=== PATIENT | male | born 1990 | race Caucasian/White ===

== ENCOUNTER 2018-06-08 00:01 | Emergency (ER) | payer MEDICAID, SELFPAY ==
[2018-06-08 00:09] VITALS: BP 124/77; PULSE 67; RESP 16; TEMP 36.6; O2SAT 97
--- NOTE | 2018-06-08 00:25 | ED.GENADUL ---
Disposition Clinical Impression: Sensation of lump in throat Disposition: HOME Condition: Stable Additional Instructions: you likely passed the pepperoni and just have small abrasion where it was. We offered to obtain Cat scan to determine if something was stuck but you declined at this time if you still have symptoms tomorrow or worsening symptoms, you have difficulty breathing, fevers or can't swallow liquids return to the emergency department Medical Decision Making - Medical Decision Making Pt here with symptoms that seem consistent with likely globus sensation or likely small esophageal abrasion. Do not feel given it was a small piece of pepperoni he states it was size of about a dime or smaller, that emergent endoscopy required at this time. I did offer to perform CT to determine now if something is stuck in his stated area, and he decided that he did not want a ct at this time. He was told to return if symptoms persistt tomorrow or if he has any respiratory symptoms - Differential Diagnosis throat abrasion, food impaction, globus sensation History of Present Illness - General Chief complaint: ThroatFB Stated complaint: FOOD STUCK IN THROAT Time Seen by Provider: 06/08/18 00:05 Source: patient Mode of arrival: ambulatory Limitations: no limitations - History of Present Illness Initial comments: 28 yo male who denies chronic medical problems comes in with cc of feeling as though there is food stuck in his throat. He states he was eating pepperoni earlier about 4 hours ago and felt it get stuck in the right lower throat inferior to his raphael apple. He denies dyspnea or cough. HE has been drinking fluids and eating since but still feels discomfort in this area so came here. HE is drinking water without issues in front of me on exam without stridor or drooling. Normal oropharynx and lung sounds. Complaint: feeling as though something is stuck in throat Onset/Timin -: hour(s) Improves with: none Worsens with: none - Related Data Unknown [No Known Home Meds] 08/05/17 Allergies Allergy/AdvReac Type Severity Reaction Status Date / Time No Known Allergies Allergy Unverified 08/05/17 18:04 Review of Systems Constitutional: denies: fever Respiratory: denies: shortness of breath Cardiovascular: denies: chest pain Gastrointestinal: denies: vomiting Skin: denies: rash Neurological: denies: headache Comment: All other systems reviewed and negative Past Medical History - Past Medical History History of multiple concussions and postconcussive syndrome Surgical history: no surgical history - Social History Alcohol use: none Drug use: none General Exam - General Limitations: no limitations General appearance: alert, in no apparent distress - Head Head exam: Present: atraumatic - Eye Eye exam: Present: normal apperance - ENT ENT exam: Present: normal orophraynx, mucous membranes moist - Neck Neck exam: Present: normal inspection, full ROM. Absent: tenderness, meningismus - Respiratory Respiratory exam: Present: normal lung sounds bilaterally. Absent: respiratory distress - Cardiovascular Cardiovascular Exam: Present: regular rate, normal rhythm, normal heart sounds - Extremities Exam Extremities exam: Present: normal inspection - Neurological Exam Neurological exam: Present: alert, oriented X3 - Psychiatric Psychiatric exam: Present: normal affect - Skin Skin exam: Present: warm Course Vital Signs - 24 hr 08/28/18 00:09 Temperature 97.9 F Pulse 67 Respiratory 16 Rate Blood Pressure 124/77 Pulse Oximetry 97
== END 2018-06-08 00:38 | disposition home or self-care (01) ==
PROVIDERS: Emergency Provider Emergency Medicine
DX: R09.89 Other specified symptoms and signs involving the circulatory and respiratory systems (principal)
CPT/HCPCS: 99281

== ENCOUNTER 2018-08-22 12:17 | Emergency (ER) | payer MEDICAID, SELFPAY ==
[2018-08-22 12:25] VITALS: BP 115/65; PULSE 78; RESP 18; TEMP 36.5; O2SAT 97
--- NOTE | 2018-08-22 12:28 | ED.GENADUL_ITS ---
Discharge Plan Disposition Patient Disposition: HOME Condition: Good Discharge Details Chief Complaint: Nk/Back Pain Clinical Impression: Throat pain Primary Care Provider: NONE,NONE ED Provider: Bob Landers Home Meds and New Rx's Prescriptions: No Action No Known Home Meds RF: 0 Discharge Instructions Additional Instructions: Based on your exam the likelihood of you having a serious injury to the trachea or esophagus is low You likely have mild bruising of the trachea if you have difficulty breathing, loud breathing or difficulty swallowing liquids return to the emergency department Medical Decision Making 28 yo male who denies chronic medical problems comes in with cc of anterior lower neck pain after he was laying in bed and his dog pawed his anterior neck. He denies other injuries but has discomfort in the area so came here. Is speaking in full sentences, no stridor or dyspnea, and no difficulty swallowing liquids on my exam. Has pain over lower anterior neck. Given his well appearance and mechanism doubt serious trachea or esophageal injury or carotid injury. Will observe here for an hour to see if he has any changes Pt remains stable, no respiratory distres, stridor, or difficulty swallowing and speaking in full sentences. Do not feel imaging indicated. Return precautions given. Differential Diagnosis contusion, laryngospsam HPI General Mode of arrival: ambulatory . Date/Time Provider Initiated Documentation: 08/22/18 12:19 . Limitations to Documentation: no limitations . Information obtained by: patient . History of Present Illness 28 year old M presents to the emergency department with the chief complaint of neck pain, described as mild, with intensity rated at 2. Quality is described as aching, and is localized to the neck. No relieving factors improve symptom(s), No exacerbating factors reported . Patient did receive the following treatments prior to arrival, none Related Data Home Medications Medication Instructions Recorded Confirmed Unknown [No Known Home Meds] 08/05/17 08/22/18 Allergies Allergy/AdvReac Type Severity Reaction Status Date / Time No Known Allergies Allergy Unverified 08/22/18 12:28 General Stated Complaint: Nk/Back Pain JOHNNIE: 3 Review of Systems Review of Systems All systems reviewed & are unremarkable except as noted in HPI and below Constitutional Denies chills, Denies fever(s) and Denies weakness Eyes Denies loss of vision ENT Denies change in voice Cardiovascular Denies chest pain and Denies dyspnea Respiratory Denies dyspnea Gastrointestinal Denies abdominal pain, Denies nausea and Denies vomiting Genitourinary Denies dysuria Musculoskeletal Denies joint swelling Integumentary/Breasts Denies rash Neurologic Denies loss of vision and Denies weakness Psychiatric Denies depression Endocrine Denies cold intolerance and Denies heat intolerance Allergic/Immunologic Denies urticaria PFSH Social History Smoking/Tobacco Use Status: Current-Occasional Exam Const General: no acute distress Orientation: alert HENMT Head: normal to inspection Ears: external ears normal General nose exam: external nose normal Mouth: moist mucous membranes Eyes General: appearance normal, both eyes and all related structures Neck Neck: normal visual inspection Resp Effort & Inspection: normal respiratory effort and able to speak in complete sentences Cardio Rate: regular rate Skin General skin exam: no rashes or lesions noted Neuro General: alert and oriented x3 Extrem General: normal to inspection Psych Mental Status: mental status grossly normal Course Vital Signs Temperature 36.5 C 08/22/18 12:25 Pulse 78 08/22/18 12:25 Respiratory Rate 18 08/22/18 12:25 Blood Pressure 115/65 08/22/18 12:25 Pulse Oximetry 97 08/22/18 12:25 Temperature 36.5 C 08/22/18 12:25 Temperature Source Skin 08/22/18 12:25 Pulse 78 08/22/18 12:25 Respiratory Rate 18 08/22/18 12:25 Blood Pressure 115/65 08/22/18 12:25 Blood Pressure Position Sitting 08/22/18 12:25 Pulse Oximetry 97 08/22/18 12:25 Oxygen Delivery Method Room Air 08/22/18 12:25 Oxygen Flow Rate 0 08/22/18 12:25
[2018-08-22 13:30] VITALS: BP 106/58; PULSE 62; RESP 14; O2SAT 99
== END 2018-08-22 13:32 | disposition home or self-care (01) ==
LOC: ER 13:37
PROVIDERS: Emergency Provider Emergency Medicine
DX: R07.0 Pain in throat (principal); W54.1XXA Struck by dog, initial encounter
CPT/HCPCS: 99281

== ENCOUNTER 2019-03-30 13:56 | Emergency (ER) | payer MEDICAID, SELFPAY ==
[2019-03-30 14:02] VITALS: BP 124/62; PULSE 92; RESP 20; TEMP 36.8; O2SAT 96
--- NOTE | 2019-03-30 14:40 | ED.GENADUL_ITS ---
Discharge Plan Disposition Patient Disposition: HOME Condition: Stable Discharge Details Chief Complaint: RashLesion Clinical Impression: Tick bite of groin Primary Care Provider: None,None ED Provider: Titi Olson Home Meds and New Rx's Prescriptions: No Action No Known Home Meds RF: 0 Discharge Instructions Instructions: Lyme Disease (ED), Tick Bite (ED) Additional Instructions: Feel free to return to the emergency department for any new or significant worsening of symptoms such as fever chills, diffuse arthralgias, or worsening rash. Otherwise continue to do nightly tick checks and if you establish a primary care provider follow-up with them for reassessment as needed Referrals: Primary Care Provider [Outside] Discharge Data Discharge Date/Time-TO BE ENTERED AT DEPARTURE: 03/30/19 14:43 Medical Decision Making Patient presenting to the emergency department chief complaint of tick bite. Patient states that here attempted to remove the tick approximately 1 hours ago. He reports leaving the head in place and unable to remove this. Patient denies any other symptoms, arthralgias, fever chills. Physical exam is unremarkable except for erythema consistent with insect bite and more than likely tick. tick had is present at this time and removed with tweezers. Toy tient on sure exactly amount of time that tick was attached but does state that it was a deer tick. Due to this patient given single dose of doxycycline and discussed tickborne illness symptoms and to return or see primary care if these occur otherwise instructed on daily tick checks along with tick prevention. After discussion of diagnosis and plan of care patient has no further needs, questions, or concerns and states clear understanding to return to the emergency department for any worsening symptoms. HPI General Mode of arrival: ambulatory . Date/Time Provider Initiated Documentation: 03/30/19 14:37 . Limitations to Documentation: no limitations . Information obtained by: patient and RN notes reviewed . History of Present Illness 28 year old M presents to the emergency department with the chief complaint of Tick bite, Quality is described as other (denies pain), Patient started experiencing this hour(s) (1) and it has been constant. Patient notes no other symptoms.. Patient did receive the following treatments prior to arrival, none Related Data Home Medications Medication Instructions Recorded Confirmed Unknown [No Known Home Meds] 08/05/17 03/30/19 Allergies Allergy/AdvReac Type Severity Reaction Status Date / Time No Known Allergies Allergy Unverified 03/30/19 14:05 General Stated Complaint: RashLesion JOHNNIE: 4 Review of Systems Constitutional Denies body ache(s), Denies fever(s) and Denies headache(s) ENT Denies headache(s) Musculoskeletal Denies myalgias, Denies arthralgias and Denies joint swelling Integumentary/Breasts Reports as per HPI, Denies erythema and Denies rash Neurologic Denies headache(s) and Denies paresthesias PFSH Social History Smoking/Tobacco Use Status: Current-Occasional Drug use: Never Do you feel safe at home: Yes Do you feel safe in your relationship?: Yes Exam Const General: cooperative, comfortable and no acute distress Orientation: alert, awake and oriented x3 Resp Effort & Inspection: normal respiratory effort and able to speak in complete sentences Skin General skin exam: erythema (left groin circular area with central bite jules consistent with tick bite), no fluctuance and no induration Rashes: no rashes Neuro General: alert, awake and oriented x3 Course Vital Signs Temperature 36.8 C 03/30/19 14:02 Pulse 92 H 03/30/19 14:02 Respiratory Rate 20 03/30/19 14:02 Blood Pressure 124/62 03/30/19 14:02 Pulse Oximetry 96 03/30/19 14:02 Temperature 36.8 C 03/30/19 14:02 Temperature Source Temporal Artery Scan 03/30/19 14:02 Pulse 92 H 03/30/19 14:02 Respiratory Rate 20 03/30/19 14:02 Respiratory Effort Non-Labored 03/30/19 14:02 Blood Pressure 124/62 03/30/19 14:02 Blood Pressure Position Sitting 03/30/19 14:02 Pulse Oximetry 96 03/30/19 14:02 Oxygen Delivery Method Room Air 03/30/19 14:02 Oxygen Flow Rate 0 03/30/19 14:02 Pain Level 0 03/30/19 14:02
[2019-03-30] MEDS: Doxycycline Hyclate 100 MG CAP 200 MG PO (14:44)
[2019-03-30 14:45] VITALS: BP 124/62; PULSE 92; RESP 20; TEMP 36.8; O2SAT 96
== END 2019-03-30 14:43 | disposition home or self-care (01) ==
PROVIDERS: Emergency Provider Nurse Practitioner Family
DX: S30.861A Insect bite (nonvenomous) of abdominal wall, initial encounter (principal); W57.XXXA Bitten or stung by nonvenomous insect and other nonvenomous arthropods, initial encounter
CPT/HCPCS: 99283

== ENCOUNTER 2019-10-06 17:23 | Emergency (ER) | payer MEDICAID, SELFPAY ==
[2019-10-06 17:27] VITALS: BP 127/77; PULSE 92; RESP 16; TEMP 37.1; O2SAT 98
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
[2019-10-06] MEDS: Acetaminophen 500 MG TAB 1000 MG PO (17:49)
[2019-10-06 18:02] VITALS: BP 115/65; PULSE 83; RESP 15; TEMP 36.8; O2SAT 96
== END 2019-10-06 18:05 | disposition home or self-care (01) ==
LOC: ER 18:06
PROVIDERS: Emergency Provider Emergency Medicine
DX: S09.90XA Unspecified injury of head, initial encounter (principal); R51 Headache; W20.8XXA Other cause of strike by thrown, projected or falling object, initial encounter
CPT/HCPCS: 99282; 99283

== ENCOUNTER 2020-04-16 01:02 | Emergency (ER) | payer MEDICAID, SELFPAY ==
[2020-04-16 01:06] VITALS: BP 134/75; PULSE 75; RESP 16; TEMP 37; O2SAT 97
--- NOTE | 2020-04-16 01:15 | DI.RAD_ITS ---
EXAM: XR FINGER LT RING CLINICAL HISTORY: pain. TECHNIQUE: 2D digital imaging was performed. COMPARISON: None. FINDINGS: BONES: No acute fracture is present. No bony destructive lesion is seen. JOINTS: No dislocation present. SOFT TISSUE: Normal. IMPRESSION: No evidence of acute fracture, dislocation, or subluxation. DATA REPOSITORY: RADIATION DOSE DELIVERED:
--- NOTE | 2020-04-16 01:35 | W.ED.GENAD ---
Discharge Plan Disposition Patient Disposition: HOME Condition: Stable Discharge Details Chief Complaint: Orthopedic Clinical Impression: Sprain of left ring finger Primary Care Provider: None,None ED Provider: Bob Landers Home Meds and New Rx's Prescriptions: No Action No Known Home Meds RF: 0 Discharge Instructions Instructions: Finger Sprain (ED) Additional Instructions: if pain continues in a week follow up with orthopedics call them for an appointment wear the splint for comfort Referrals: Moreno Trujillo MD [ [facility] STAFF PHYSICIAN] - Medical Decision Making 29 yo male states he was holding his dog on the harness when the dog ran and his left distal ring finger got pulled, no falls or other injuruies. Has distal left ring finger pain with full rom and intact sensation, no deficits in extension or flexion in any joint. Has pain over distal left DIP joint, will xray to eval for fx though suspect sprain xray negative on my read and vrad as well, suspect sprain. Placed in splint for comfort and advised f/u with ortho if continues in a week Differential Diagnosis Differential Diagnosis: tendonitis, tendon injury, fx Imaging Data Radiologic Study: Attestation: I personally reviewed and interpreted this imaging study as follows: Imaging: X-Ray My impression: no acute findings HPI General Mode of arrival: ambulatory. Date/Time Provider Initiated Documentation: 04/16/20 01:03. Limitations to Documentation: no limitations. Information obtained by: patient. History of Present Illness 29 year old M presents to the emergency department with the chief complaint of left ring finger pain, described as moderate, No relieving factors improve symptom(s), No exacerbating factors reported . Related Data Home Medications Medication Instructions Recorded Confirmed Unknown [No Known Home Meds] 08/05/17 04/16/20 Allergies Allergy/AdvReac Type Severity Reaction Status Date / Time No Known Allergies Allergy Unverified 04/16/20 01:08 General Stated Complaint: Orthopedic JOHNNIE: 4 Review of Systems All systems reviewed & are unremarkable except as noted in HPI and below Constitutional Constitutional: Denies chills, Denies fever(s) and Denies weakness Cardiovascular Cardiovascular: Denies chest pain and Denies dyspnea Respiratory Respiratory: Denies cough and Denies dyspnea Gastrointestinal Gastrointestinal: Denies abdominal pain, Denies nausea and Denies vomiting Neurologic Neurologic: Denies weakness Psychiatric Psychiatric: Denies depression [facility] Medical History (Updated 04/16/20 @ 01:54 by Bob Landers MD) Anxiety (Chronic) Social History Smoking/Tobacco Use Status: Current-Occasional Alcohol Intake: current Alcohol Intake frequency: a few times a week Drug use: Daily Substance use type: marijuana Do you feel safe at home: Yes Do you feel safe in your relationship?: Yes Exam Const General: no acute distress Orientation: alert HENMT Head: normal to inspection Ears: external ears normal General nose exam: external nose normal Mouth: moist mucous membranes Eyes General: appearance normal, both eyes and all related structures Neck Neck: normal visual inspection Resp Effort & Inspection: normal respiratory effort and able to speak in complete sentences Cardio Rate: regular rate Skin General skin exam: no rashes or lesions noted Neuro General: patient alert and patient oriented x3 Extrem General: full ROM and capillary refill normal Psych Mental Status: mental status grossly normal Course Vital Signs Vital signs: Vital Signs Temperature 37.0 C 04/16/20 01:06 Pulse 75 04/16/20 01:06 Respiratory Rate 16 04/16/20 01:06 Blood Pressure 134/75 04/16/20 01:06 Pulse Oximetry 97 04/16/20 01:06 Temperature 37.0 C 04/16/20 01:06 Temperature Source Oral 04/16/20 01:06 Pulse 75 04/16/20 01:06 Respiratory Rate 16 04/16/20 01:06 Respiratory Effort Non-Labored 04/16/20 01:09 Blood Pressure 134/75 04/16/20 01:06 Pulse Oximetry 97 04/16/20 01:06 Pain Level 6 04/16/20 01:06
--- NOTE | 2020-04-16 01:54 | DI.VRAD_ITS ---
PROCEDURE INFORMATION: Exam: XR Left Finger(s) Exam date and time: 04/16/2020 1:34 AM Age: 29 years old Clinical indication: Finger(s); Patient HX: Pain in left ring finger after getting caught in a dog harness TECHNIQUE: Imaging protocol: XR Left fingers. Views: Minimum 2 views. COMPARISON: No relevant prior studies available. FINDINGS: Bones/joints: Normal. No acute fracture or dislocation. Soft tissues: There is soft tissue swelling noted. IMPRESSION: No acute fracture. Dictated and Authenticated by: Marce Mckeon MD. Ordering:LISANDRO Rojas MD
[2020-04-16] MEDS: Ibuprofen 600 MG TAB PO (02:03)
== END 2020-04-16 02:10 | disposition home or self-care (01) ==
PROVIDERS: Emergency Provider Emergency Medicine
DX: S63.615A Unspecified sprain of left ring finger, initial encounter (principal); X50.9XXA Other and unspecified overexertion or strenuous movements or postures, initial encounter; Y93.K1 Activity, walking an animal
CPT/HCPCS: 29130; 99283; 73140

== ENCOUNTER 2021-04-06 12:59 | Emergency (ER) | payer MEDICAID, SELFPAY ==
[2021-04-06 13:05] VITALS: BP 136/78; PULSE 93; RESP 16; TEMP 36.5; O2SAT 96
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
[2021-04-06 13:54] VITALS: BP 110/89; PULSE 83; RESP 19; O2SAT 96
== END 2021-04-13 03:50 | disposition home or self-care (01) ==
PROVIDERS: Emergency Provider Physician Assistant
DX: S09.8XXA Other specified injuries of head, initial encounter (principal); W20.8XXA Other cause of strike by thrown, projected or falling object, initial encounter
CPT/HCPCS: 99282

== ENCOUNTER 2022-11-27 14:13 | Outpatient (REF) | payer MEDICAID, SELFPAY ==
[2022-11-27 21:36] LABS: Anion Gap 9.3 mmol/L (3-11); BUN 18 mg/dL (7-18); CO2 29.7 mmol/L (21.0-32.0); CREATININE 1.2 mg/dL (0.70-1.30); Calcium 9.6 mg/dL (8.5-10.1); Chloride 101 mmol/L (98-107); Estimated GFR 81.89 (mL/min/1.73m2); Glucose 101 mg/dL (74-106); Magnesium 2.2 mg/dL (1.8-2.4); Sodium 140 mmol/L (136-145); TSH (W/Ref FT4) 1.39 uIU/mL (0.36-3.74)
[2022-11-27 22:39] LABS: Hemoglobin A1C 5.2 % (<5.7)
== END 2022-11-27 14:14 | disposition home or self-care (01) ==
LOC: LBN 14:13
PROVIDERS: Visit Provider Physician Assistant Medical
DX: Z13.89 Encounter for screening for other disorder (principal)
CPT/HCPCS: 80048; 83036; 83735; 84443

== ENCOUNTER 2023-01-28 20:09 | Emergency (ER) | payer MEDICAID, SELFPAY ==
[2023-01-28 20:15] VITALS: BP 142/72; PULSE 76; RESP 16; TEMP 36.7; O2SAT 96
[2023-01-28] MEDS: Doxycycline Hyclate 100 MG CAP 200 MG PO (20:51)
--- NOTE | 2023-01-28 20:52 | ED.GENADUL_ITS ---
Discharge Plan Disposition Patient Disposition: Home Discharge Details Clinical Impression: Tick bite of back Primary Care Provider: None,None ED Provider: Titi Olson Home Meds and New Rx's Prescriptions: No Action No Known Home Meds Discharge Instructions Instructions: Tick Bite (ED) Additional Instructions: Continue to monitor for any signs of infection from the bite and return immediately if these occur. As discussed also watch for any symptoms of Lyme disease over the next 6 weeks and if these occur please mention to your provider that you were bit by a tick. At this time you have been given a single dose of doxycycline that prevents the majority of the transmission of Lyme disease from tick bites. Feel free to follow-up with your primary care provider as needed for reassessment Referrals: Primary Care Provider [Outside] Medical Decision Making Patient presenting for chief complaint of tick bite to right mid back. Patient denies all other symptoms. On aware of attachment time. Does state that when he attempted to remove the tick at home he did identified as a deer tick. Physical exam shows an area consistent with tick bite with some remaining pieces of the tick present. Did attempt to remove the majority these pieces but small piece removed was left remaining. Do not feel that excision and removal is necessary so patient was informed to monitor for any signs of infection and he may use stxl-pvc-[id number] topical antibiotics as needed. Otherwise did give patient single dose of doxycycline due to local prevalence of Lyme disease and unknown attachment time with embedded tick. After discussion of diagnosis and plan of care patient has no further needs, questions, or concerns and states clear understanding to return to the emergency department for any worsening symptoms. This documentation was generated using [employer] dictation system, please disregard any oddities of phrase or misspellings. HPI General Mode of arrival: ambulatory . Date/Time Provider Initiated Documentation: 01/28/23 20:37 . Limitations to Documentation: no limitations . Information obtained by: patient and RN notes reviewed . History of Present Illness 32 year old M presents to the emergency department with the chief complaint of Tick bite, Patient notes no other symptoms.. Patient did receive the following treatments prior to arrival, none Related Data Home Medications Medication Instructions Recorded Confirmed Unknown [No Known Home Meds] 08/05/17 01/28/23 Allergies Allergy/AdvReac Type Severity Reaction Status Date / Time dairy Allergy Uncoded 01/28/23 20:18 General Stated Complaint: RashLesion JOHNNIE: 4 Review of Systems Constitutional Constitutional: Denies body ache(s), Denies fever(s) and Denies headache(s) ENT Ears, Nose, Mouth, and Throat: Denies headache(s) Musculoskeletal Musculoskeletal: Denies myalgias, Denies arthralgias and Denies joint swelling Integumentary/Breasts Skin/Breast: Reports as per HPI, Denies erythema and Denies rash Neurologic Neurologic: Denies headache(s) and Denies paresthesias PFSH All Active Problems Head injury (Acute) Tick bite of back (Acute) Mallet deformity of left ring finger (Acute 04/16/20) Medical History Anxiety Social History Smoking/Tobacco Use Status: Former Tobacco Use Smoking risk assessment performed?: Yes Alcohol Intake: current Alcohol Intake frequency: a few times a week Drug use: Daily Substance use type: marijuana Current gender identity: male Do you feel safe at home: Yes Do you feel safe in your relationship?: Yes Exam Const General: cooperative, comfortable and no acute distress Orientation: alert, awake and oriented x3 Resp Effort & Inspection: normal respiratory effort and able to speak in complete sentences Skin General skin exam: erythema ( central bite jules consistent with insect/tick bite on back ), no fluctuance, no induration and other Rashes: no rashes Neuro General: patient alert, patient awake and patient oriented x3 Course Vital Signs Vital signs: Vital Signs Temperature 36.7 C 01/28/23 20:15 Pulse 76 01/28/23 20:15 Respiratory Rate 16 01/28/23 20:15 Blood Pressure 142/72 H 01/28/23 20:15 Pulse Oximetry 96 01/28/23 20:15 Temperature 36.7 C 01/28/23 20:15 Temperature Source Oral 01/28/23 20:15 Pulse 76 01/28/23 20:15 Respiratory Rate 16 01/28/23 20:15 Respiratory Effort Normal 01/28/23 20:15 Blood Pressure 142/72 H 01/28/23 20:15 Blood Pressure Position Sitting 01/28/23 20:15 Pulse Oximetry 96 01/28/23 20:15 Oxygen Delivery Method Room Air 01/28/23 20:15 Oxygen Flow Rate 0 01/28/23 20:15 Pain Level 0 01/28/23 20:15 PAWSS Have you Been Recently Intoxicated or Drunk Within the Last 30 days?: Yes Have you Ever Experienced Previous Episodes of Alcohol Withdrawal?: No Have you ever Experienced Withdrawal Seizures?: No Have you ever Experienced Delirium Tremens(DT)s?: No Have you ever undergone Alcohol Rehabilitation Treatment (i.e, inpt ot outpatient treatment programs)?: No Have you ever Experienced Blackouts?: No Have you ever Combined Alcohol with other Downers within the last 90 days?: No Have you ever Combined Alcohol with any other Substance of Abuse during the last 90 days?: No Positive Blood Alcohol level on Presentation? [PCS.BAL]: No Evidence of Increased Autonomic Activity (i.e. HR>120, tremor, sweating, agitation, nausea)?: No Result: 1
== END 2023-01-28 20:58 | disposition home or self-care (01) ==
PROVIDERS: Emergency Provider Nurse Practitioner Family
DX: S20.461A Insect bite (nonvenomous) of right back wall of thorax, initial encounter (principal); W57.XXXA Bitten or stung by nonvenomous insect and other nonvenomous arthropods, initial encounter
CPT/HCPCS: 99283; 99284

== ENCOUNTER 2023-05-31 09:47 | Emergency (ER) | payer MEDICAID, SELFPAY ==
[2023-05-31 09:52] VITALS: BP 168/91; PULSE 80; RESP 16; TEMP 36.5; O2SAT 98
--- NOTE | 2023-05-31 11:06 | NUR.NOTE ---
Nursing Note: Pt upset about discharge papers stating pt took dexamethasone. Pt did not take dexamethasone as pt stated he did not want it. This RN thoroughly explained why dexamethasone was ordered and mechanism of action. This RN went to give d/c papers and pt refused to sign with papers stating pt had medication. Pt stated, you guys give people covid vaccines that are proven to give people covid. This RN explained that that is patently false.
--- NOTE | 2023-05-31 14:47 | ED.GENADUL_ITS ---
Discharge Plan Disposition Patient Disposition: Home Discharge Details Clinical Impression: Pharyngitis Primary Care Provider: DIONY CLARK ED Provider: Betty Gonzalez Home Meds and New Rx's Prescriptions: No Action No Known Home Meds Discharge Instructions Instructions: Pharyngitis (ED) Additional Instructions: Take ibuprofen and Tylenol as needed for pain You given a dose of Decadron which is a steroid, this will help with your pain and takes approximately 4 to 6 hours to become effective Continue to eat and drink, it is very important to drink so you do not become dehydrated Should you develop new or worsening complaints I recommend reassessment in the emergency department or with your primary care physician I will call you if your COVID swab is positive, if it is negative you will not receive a call in the next hour Stand Alone Forms: Work Release Discharge Data Discharge Date/Time-TO BE ENTERED AT DEPARTURE: 05/31/23 11:04 Medical Decision Making This 33-year-old male presents with report of sore throat and right ear pain On exam has tympanic membrane and external auditory canal on the right ear do not show acute abnormality aside from small amount of wax There is no bulging tympanic membrane, no mastoid tenderness, no erythema, and no drainage Throat is mildly erythematous without crypts, uvula midline, no significant edema, phonation intact, no stridor, mild submandibular lymphadenopathy, no posterior occipital lymphadenopathy, maintaining secretions Both strep and COVID are negative Afebrile and nontoxic I suspect patient has viral syndrome He is given a work note and a single dose of Decadron to help with his pain which is his primary complaint to his throat He is encouraged to take Tylenol and to return earlier should he have new or worsening complaints Of note his blood pressure was 168/91, he is encouraged to have this rechecked by his doctor in the outpatient setting HPI General Date/Time Provider Initiated Documentation: 05/31/23 10:12 . HPI Narrative: This 33-year-old male presents with sore throat, report of subjective fever and right ear pain. 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 He is wondering if he has strep or COVID. Denies globus sensation and throat. Reports pain with swallowing only. Denies any stiff neck or fever today. Denies any cough or shortness of breath. Related Data Home Medications Medication Instructions Recorded Confirmed Unknown [No Known Home Meds] 08/05/17 05/31/23 Allergies Allergy/AdvReac Type Severity Reaction Status Date / Time dairy Allergy Uncoded 01/28/23 20:18 General Stated Complaint: Sorethroat JOHNNIE: 4 PFSH All Active Problems (Updated 05/31/23 @ 10:23 by SANTIAGO Shah) Head injury (Acute) Pharyngitis (Acute) Mallet deformity of left ring finger (Acute 04/16/20) Medical History Anxiety Social History Smoking/Tobacco Use Status: Former Tobacco Use Smoking risk assessment performed?: Yes Alcohol Intake: former Drug use: Occasionally Substance use type: marijuana Housing: house Current gender identity: male Do you feel safe at home: Yes Do you feel safe in your relationship?: Yes Course Vital Signs Vital signs: Vital Signs Temperature 36.5 C 05/31/23 09:52 Pulse 80 05/31/23 09:52 Respiratory Rate 16 05/31/23 09:52 Blood Pressure 168/91 H 05/31/23 09:52 Pulse Oximetry 98 05/31/23 09:52 Temperature 36.5 C 05/31/23 09:52 Temperature Source Temporal Artery Scan 05/31/23 09:52 Pulse 80 05/31/23 09:52 Respiratory Rate 16 05/31/23 09:52 Respiratory Effort Normal, Non-Labored 05/31/23 09:55 Blood Pressure 168/91 H 05/31/23 09:52 Blood Pressure Position Sitting 05/31/23 09:52 Pulse Oximetry 98 05/31/23 09:52 Oxygen Delivery Method Room Air 05/31/23 09:52 Oxygen Flow Rate 0 05/31/23 09:52 Lab/Test Results Lab/Test Results: 05/31/23 09:52 Tonsil - Not Specified Group A Streptococcus Culture - Pending POC Strep Test-GIAN(Rapid) Start: 05/31/23 10:02 Freq: .Rapid Strep Test Status: Discharge Protocol: Document 05/31/23 10:03 FAITH (Rec: 05/31/23 10:03 FAITH [id number]) Strep test-GIAN(Rapid)-POC POC-Strep test-GIAN (Rapid) Negative POC-Strep test-GIAN (Rapid) Negative
== END 2023-05-31 11:04 | disposition home or self-care (01) ==
PROVIDERS: Emergency Provider Physician Assistant; PCP Nurse Practitioner Family
DX: J02.9 Acute pharyngitis, unspecified (principal); R50.9 Fever, unspecified
CPT/HCPCS: 87426; 87880; 99283; 87081; 99282

== ENCOUNTER → 2023-11-10 10:45 | Outpatient (CLI) | payer MEDICAID, SELFPAY ==
--- NOTE | 2023-11-10 | DI.RAD_ITS ---
Exam(s) XR TOE RT FIFTH EXAM: XR TOE RT FIFTH CLINICAL HISTORY: M79.671 Pain in right foot. TECHNIQUE: 2D digital imaging was performed. COMPARISON: No exams were available for comparison FINDINGS: 3 views No evidence of acute fracture or dislocation. 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 S imilar finding seen in the 3rd and 4th toes. Bone density normal. No osseous lesions. No radiopaqu e foreign body. IMPRESSION: No acute osseous findings in the 5th toe. DATA REPOSITORY: RADIATION DOSE DELIVERED:
--- NOTE | 2023-11-10 17:22 | DI.VRAD_ITS ---
PROCEDURE INFORMATION: Exam: XR Right Toe(s) Exam date and time: 11/10/2023 5:03 PM Age: 33 years old Clinical indication: Pain and injury or trauma; Other: Dropped something onto foot. Crushing; Foot and toes; Right lesser toe(s) TECHNIQUE: Imaging protocol: Radiologic exam of the right toes. Views: Minimum 2 views. COMPARISON: No relevant prior studies available. FINDINGS: Bones/joints: Normal mineralization and alignment. No fracture, degenerative spur, osseous erosion, joint effusion, joint body or other deformity. Soft tissues: Normal. IMPRESSION: Normal. Dictated and Authenticated by: Catracho Tabor MD. Ordering:TREMAINE THAO MD
== END ==
PROVIDERS: PCP Nurse Practitioner Family; Visit Provider Nurse Practitioner Family
DX: M79.671 Pain in right foot (principal)
CPT/HCPCS: 73660